=== PATIENT | female | born 1940 | race Caucasian/White ===

== ENCOUNTER → 2025-03-09 | Outpatient (CLI) | payer MEDICARE, OTHER, MEDICAID, SELFPAY ==
--- NOTE | 2025-03-09 13:20 | XR_ITS ---
Examination: Bone densitometry Date and time of exam: March 09, 2025, 1413 hours INDICATIONS: Hysterectomy age 46 levothyroxine 41 years diabetic Technique: Lumbar spine and hip total bone mineralization values of an calculated. Peak reference and age match control results have been displayed. Findings: Lumbar spine total bone mineralization is 1.016 gm/cm2. This is 0.3 standard deviations below peak reference. This is 2.6 standard deviations above age-matched controls. Hip total bone mineralization is 0.856 gm/cm2 This is 0.7 standard deviations below peak reference. This is 1.6 standard deviations above age-matched controls Impression: There is normal mineralization based on lumbar spine measurements. There is osteopenia based on hip measurements Lumbar mineralization is decreased 5.3% compared with December 07, 2016 Hip mineralization is increased 4.8% compared with December 07, 2016
== END | disposition home or self-care (01) ==
LOC: CDIM 13:25
PROVIDERS: Referring Provider Physician Assistant; Visit Provider Physician Assistant
DX: M85.89 Other specified disorders of bone density and structure, multiple sites (principal)
CPT/HCPCS: 77080